=== PATIENT | female | born 1940 ===

== ENCOUNTER 2017-09-10 12:58 | Emergency (ER) | payer MEDICAID, MEDICARE, OTHER ==
[2017-09-10 13:01] VITALS: BMI 21.9
[2017-09-10 13:16] VITALS: TEMP 98.7
[2017-09-10] MEDS ORDERED: Alum-Mag Hydrox-Simethicone Susp (30 mL) PO STA (13:50)
[2017-09-10] MEDS ORDERED: Sodium Chloride 0.9% 500 ML IV STA (14:03)
--- NOTE | 2017-09-10 14:09 | ED PDOC ---
Arrival/HPI - General Chief Complaint: Dizziness/Lightheaded Time Seen by Provider: 09/10/17 13:16 Historian: Patient, Family - History of Present Illness Narrative History of Present Illness (Text): 09/10/17 14:05 77 yo F with PMH of HTN, DM, and gastritis presents to the ED complaining of nausea and vomiting. Patient has been nauseous, with a "sour stomach" for over a month, but has been vomiting, unable to keep anything down, for the past 2 days. Yesterday, she vomited 2-3 times, the food she had eaten. Today, she again vomited 2-3 times, just clear white/yellow sputum/liquid. She denies hematemesis, bile, or black/coffee ground emesis. She has had these symptoms many time in the past. Patient recently returned from the [facility], on 08/19, where she was previously living. She denies any sick contacts, but while in , there was a "virus going around." She denies fever, chills, chest pain, shortness of breath, cough. She also has pain in her abdomen, in the epigastrum, does not radiate. No particular exacerbating or remitting factors. 7 /10 in severity. Feels similar to her prior episodes of gastritis. Time/Duration: > month Symptom Course: Worsening Quality: Cramping Severity Level: 7 Past Medical History - Provider Review Nursing Documentation Reviewed: Yes - Travel History Have you recently traveled outside [place] w/in the past 3 mons?: Yes - Patient History Narrative Patient History: HTN, DM, gastritis - Infectious Disease Hx of Infectious Diseases: None - Tetanus Immunization Tetanus Immunization: Unknown - Cardiac Hx Cardiac Disorders: Yes Hx Hypertension: Yes - Pulmonary Hx Respiratory Disorders: No - Neurological Hx Neurological Disorder: No - HEENT Hx HEENT Disorder: No - Renal Hx Renal Disorder: No - Endocrine/Metabolic Hx Endocrine Disorders: Yes Hx Diabetes Mellitus Type 2: Yes - Hematological/Oncological Hx Blood Disorders: No - Integumentary Hx Dermatological Disorder: No - Musculoskeletal/Rheumatological Hx Musculoskeletal Disorders: No - Gastrointestinal Hx Gastrointestinal Disorders: Yes Hx Gastroesophageal Reflux: Yes - Genitourinary/Gynecological Hx Genitourinary Disorders: No Hx Sexually Transmitted Diseases: No - Psychiatric Hx Psychophysiologic Disorder: No Hx Substance Use: No - Surgical History Other/Comment: HERNIA REPAIR - Suicidal Assessment Feels Threatened In Home Enviroment: No Family/Social History - Physician Review Nursing Documentation Reviewed: Yes Family/Social History: Unknown Family HX Smoking Status: Never Smoked Hx Alcohol Use: No Hx Substance Use: No Allergies/Home Meds Allergies/Adverse Reactions: Allergies No Known Allergies Allergy (Verified 09/10/17 13:10) Home Medications: Home Meds Medication Instructions Recorded Confirmed Amlodipine Besylate [Norvasc] 5 mg PO DAILY 03/02/13 09/10/17 Metformin Hydrochloride [Metformin] 1,000 mg PO DAILY 03/02/13 09/10/17 Review of Systems - Review of Systems Constitutional: Normal Eyes: Normal ENT: Normal Respiratory: Normal Gastrointestinal: Abdominal Pain, Nausea, Vomiting, Appetite Changes, Anorexia, Food Intolerance. absent: Constipation, Diarrhea, Hematochezia, Hematemesis Genitourinary Female: Normal Musculoskeletal: Normal Skin: Normal Neurological: Headache Endocrine: Normal Hemo/Lymphatic: Normal Psychiatric: Normal Physical Exam Vital Signs Temp Pulse Resp BP Pulse Ox 09/10/17 13:11 98.7 F 86 17 151/81 H 97 Temperature: Afebrile Blood Pressure: Hypertensive Pulse: Regular Respiratory Rate: Normal Appearance: Positive for: Well-Appearing, Non-Toxic Pain Distress: Mild Mental Status: Positive for: Alert and Oriented X 3 - Systems Exam Head: Present: Atraumatic, Normocephalic Pupils: Present: PERRL Extroacular Muscles: Present: EOMI Conjunctiva: Present: Normal Mouth: Present: Dry Neck: Present: Normal Range of Motion Respiratory/Chest: Present: Clear to Auscultation, Good Air Exchange Cardiovascular: Present: Regular Rate and Rhythm, Normal S1, S2 Abdomen: Present: Tenderness, Normal Bowel Sounds, Other (Epigastric fullness). No: Distention, Peritoneal Signs, Rebound, Guarding, McBurney's Point Tender, Rovsing's Sign Present Upper Extremity: Present: Normal Inspection Lower Extremity: Present: Normal Inspection Neurological: Present: GCS=15, CN II-XII Intact, Speech Normal Skin: Present: Warm, Dry, Normal Color Psychiatric: Present: Alert, Oriented x 3, Normal Insight, Normal Concentration Medical Decision Making ED Course and Treatment: 09/10/17 14:23 Ordered CBC, CMP, Lipase, UA, and cardiac ISO Ordered IV pepcid, IV Zofran, and maalox. Patient reports some symptomatic improvement after maalox 09/10/17 15:16 Slightly improved, though still with abdominal pain. Ordered CT Abdomen/Pelvis CT w/o contrast. Pending UA 09/10/17 15:26 09/10/17 16:59 Abdomen/Pelvis CT unremarkable. Patient symptomatically improved. Urinalysis showed positive LE, bacteria, and WBC, and patient had suprapubic tenderness. Will discharge home with Omeprazole 40mg daily, Zofran 4mg Q8 PRN #10, and Macrobid 100mg BID #10. Encouraged patient to follow up with PMD and with jailer, and to return to ER for any new/worsening symptoms or concerns. Reassessment Condition: Re-examined, Improving,but remains with symptoms - Lab Interpretations Lab Results: 09/10/17 14:12 09/10/17 14:12 Lab Results 09/10/17 16:18: Urine Color Yellow, Urine Appearance Sl cloudy, Urine pH 7.0, Ur Specific [place] 1.015, Urine Protein Trace H, Urine Glucose (UA) Negative, Urine Ketones Negative, Urine Blood Negative, Urine Nitrate Negative, Urine Bilirubin Negative, Urine Urobilinogen 0.2, Ur Leukocyte Esterase Moderate H, Urine RBC Negative, Urine WBC 5 - 10, Ur Epithelial Cells 4 - 5, Urine Bacteria Few 09/10/17 14:45: PT 11.3, INR 0.99, APTT 25.6 09/10/17 14:12: Sodium 130 L, Potassium 4.1, Chloride 89 L, Carbon Dioxide 27, Anion Gap 17, BUN 27 H, Creatinine 1.5 H, Est GFR ( Amer) 41, Est GFR ( Non-Af Amer) 34, Random Glucose 165 H, Calcium 10.9 H, Total Bilirubin 0.3, AST 31, ALT 27, Alkaline Phosphatase 99, Lactate Dehydrogenase 447, Total Creatine Kinase 69, Troponin I < 0.01, Total Protein 8.2, Albumin 4.6, Globulin 3.6, Albumin/Globulin Ratio 1.3, Lipase 143 09/10/17 14:12: WBC 6.7, RBC 3.84, Hgb 11.4 L, Hct 32.9 L, MCV 85.7, MCH 29.7, MCHC 34.7, RDW 12.5, Plt Count 253, MPV 9.5, Gran % 49.8 L, Lymph % (Auto) 42.3 H, [place] % (Auto) 6.2 H, Eos % (Auto) 1.4 L, Baso % (Auto) 0.3, Gran # 3.32, Lymph # (Auto) 2.8, [place] # (Auto) 0.4, Eos # (Auto) 0.1, Baso # (Auto) 0.02 - RAD Interpretation Radiology Orders: 09/10/17 15:25 ABD & PELVIS W/O PO OR IV CONT [CT] Stat - EKG Interpretation Type: 12 lead EKG Comparison: Similar to previous EKG - Medication Orders Current Medication Orders: Discontinued Medications Al Hydrox/Mg Hydrox/Simethicone (Maalox Plus 30 Ml) 30 ml PO STAT STA Stop: 09/10/17 13:51 Last Admin: 09/10/17 14:21 Dose: 30 ml Famotidine (Pepcid) 20 mg IVP STAT STA Stop: 09/10/17 13:48 Last Admin: 09/10/17 14:23 Dose: 20 mg IVP Administration Document 09/10/17 14:23 MR (Rec: 09/10/17 14:23 [id number] Charges for Administration # of IVP Administrations 1 Sodium Chloride (Sodium Chloride 0.9%) 500 mls @ 999 mls/hr IV .Q31M STA Stop: 09/10/17 14:33 Last Admin: 09/10/17 14:24 Dose: 999 mls/hr eMAR Start Stop Document 09/10/17 14:24 MR (Rec: 09/10/17 14:24 [id number] Intravenous Solution Start Date 09/10/17 Start Time 14:24 End Date 09/10/17 End time 14:54 Total Infusion Time 30 Ondansetron HCl (Zofran Inj) 4 mg IVP STAT STA Stop: 09/10/17 14:04 Last Admin: 09/10/17 14:22 Dose: 4 mg IVP Administration Document 09/10/17 14:22 MR (Rec: 09/10/17 14:23 [id number] Charges for Administration # of IVP Administrations 1 Disposition/Present on Arrival - Present on Arrival Any Indicators Present on Arrival: No History of DVT/PE: No History of Uncontrolled Diabetes: Yes Urinary Catheter: No History of Decub. Ulcer: No History Surgical Site Infection Following: None - Disposition Have Diagnosis and Disposition been Completed?: Yes Diagnosis: Abdominal pain in female patient, Gastritis, Urinary tract infection, Nausea & vomiting Disposition: HOME/ ROUTINE Disposition Time: 17:05 Patient Plan: Discharge Patient Problems: Current Active Problems Problem Status Onset Abdominal pain in female patient Acute Gastritis Acute Nausea & vomiting Acute Urinary tract infection Acute Condition: FAIR Discharge Instructions (ExitCare): Gastritis, Ulcer and Gastritis Diet, Urinary Tract Infections in Adults Prescriptions: Nitrofurantoin Macrocrystals [Macrobid] 100 mg PO BID #10 cap Omeprazole 40 mg PO DAILY #30 capsule. Ondansetron ODT [Zofran ODT] 4 mg PO Q8H PRN #10 odt PRN Reason: Nausea/Vomiting Referrals: Julian Jordan MD [Primary Care Provider] - Follow up with primary Forms: [employer] (Amharic)
[2017-09-10 14:28] LABS: BASO # 0.02 K/mm3 (0.0-2.0); BASO % 0.3 % (0.0-3.0); EOS # 0.1 (0.0-0.7); EOS % 1.4 % (1.5-5.0); GRAN # 3.32 (1.4-6.5); GRAN % 49.8 % (50.0-68.0); HEMOGLOBIN 11.4 g/dL (12.0-16.0); LYMPH # 2.8 (1.2-3.4); LYMPH % 42.3 % (22.0-35.0); MEAN CELL VOLUME 85.7 fl (80.0-105.0); MEAN CORPUSCULAR HEMOGLOBIN 29.7 pg (25.0-35.0); MEAN CORPUSCULAR HGB CONC 34.7 g/dl (31.0-37.0); MEAN PLATELET VOLUME 9.5 fl (7.0-11.0); MONO # 0.4 (0.1-0.6); MONO % 6.2 % (1.0-6.0); RBC 3.84 10^6/uL (3.5-6.1); RED CELL DISTRIBUTION WIDTH 12.5 % (11.5-14.5); WHITE BLOOD COUNT 6.7 10^3/ul (4.5-11.0)
[2017-09-10 14:30] LABS: ALB/GLOB RATIO 1.3 (1.1-1.8); ALBUMIN 4.6 g/dL (3.0-4.8); ALT/SGPT 27 U/L (7-56); AST/SGOT 31 U/L (14-36); BLOOD UREA NITROGEN 27 mg/dL (7-21); CALCIUM 10.9 mg/dL (8.4-10.5); GFR AFRICAN-AMERICAN 41; GFR NON-AFRICAN AMERICAN 34; LIPASE 143 U/L (23-300)
[2017-09-10 14:42] LABS: TROPONIN I < 0.01 ng/mL
[2017-09-10 14:53] LABS: INR 0.99 (0.93-1.08); PARTIAL THROMBOPLASTIN TIME 25.6 Seconds (25.1-36.5); PROTHROMBIN TIME 11.3 SECONDS (9.4-12.5)
[2017-09-10 16:28] LABS: URINE BILIRUBIN NEGATIVE (NEGATIVE); URINE BLOOD NEGATIVE (NEGATIVE); URINE GLUCOSE (UA) NEGATIVE (NEGATIVE); URINE LEUKOCYTE ESTERASE MODERATE Leu/uL (NEGATIVE); URINE PROTEIN TRACE mg/dL (<30 mg/dL); URINE UROBILINOGEN 0.2 E.U./dL (<1 E.U./dL)
[2017-09-10 16:29] LABS: URINE APPEARANCE SL CLOUDY (CLEAR); URINE COLOR YELLOW (YELLOW)
[2017-09-10 16:35] LABS: URINE BACTERIA FEW (NEG); URINE RBC NEGATIVE /hpf (0-2)
--- NOTE | 2017-09-10 16:41 | CT ---
PROCEDURE: CT Abdomen and Pelvis without intravenous contrast HISTORY: Upper abdominal pain, nausea and vomiting COMPARISON: 10/31/2013 TECHNIQUE: Unenhanced study. Neither oral nor intravenous contrast administered. Radiation dose: Total exam DLP = 238.36 mGy-cm. This CT exam was performed using one or more of the following dose reduction techniques: Automated exposure control, adjustment of the mA and/or kV according to patient size, and/or use of iterative reconstruction technique. FINDINGS: LOWER THORAX: Unremarkable. LIVER: Unremarkable. No gross lesion or ductal dilatation. GALLBLADDER AND BILE DUCTS: Unremarkable. PANCREAS: Unremarkable. No gross lesion or ductal dilatation. SPLEEN: Unremarkable. ADRENALS: Unremarkable. No mass. KIDNEYS AND URETERS: Unremarkable. No hydronephrosis. No solid mass. VASCULATURE: Unremarkable. No aortic aneurysm. BOWEL: Unremarkable. No obstruction. No gross mural thickening. APPENDIX: Unremarkable. Normal appendix. PERITONEUM: Unremarkable. No free fluid. No free air. LYMPH NODES: Unremarkable. No enlarged lymph nodes. BLADDER: Unremarkable. REPRODUCTIVE: Unremarkable. BONES: No acute fracture. OTHER FINDINGS: None. IMPRESSION: No acute findings related to/accounting for the clinical presentation.
[2017-09-10 17:35] VITALS: BP 132/69; PULSE 72; RESP 18; O2SAT 98
--- NOTE | 2017-09-11 10:07 | CARD ---
APPROVED REPORT EKG Measurement Heart [id number] <Conclusion> Normal sinus rhythm Normal ECG No change
== END 2017-09-10 17:35 | disposition home or self-care (01) ==
LOC: ED 12:58
DX: K29.70 Gastritis, unspecified, without bleeding (principal); N39.0 Urinary tract infection, site not specified; R11.2 Nausea with vomiting, unspecified; I10 Essential (primary) hypertension; E11.9 Type 2 diabetes mellitus without complications
CPT/HCPCS: 74176; 80053; 81001; 82550; 83615; 83690; 84484; 85025; 85610; 85730; 87086; 93005; 96374; 96375; 99285; J2405; J7040